=== PATIENT | male | born 1970 | race African-American/Black ===

== ENCOUNTER 2023-10-06 12:47 | Day surgery (SDC) | payer BC ==
[~2023-10-06 12:47] MED LIST: Lactated Ringers 1,000 ML IV SCH
[2023-10-06] MEDS ORDERED: Lidocaine 1% 5 ML VIAL ONE (13:17)
[2023-10-06] MEDS ORDERED: Lidocaine 2% 5 ML SDV ONE (14:44)
[2023-10-06] MEDS ORDERED: Propofol 200 MG/20 ML SDV ONE (14:44)
[2023-10-06] MEDS ORDERED: Lactated Ringers 1,000 ML IV SCH (15:30)
== END 2023-10-06 16:05 | disposition home or self-care (01) ==
LOC: MW.SDS 12:47
PROVIDERS: ATTEND Surgery
DX: Z12.11 Encounter for screening for malignant neoplasm of colon (principal); D12.4 Benign neoplasm of descending colon; I11.0 Hypertensive heart disease with heart failure; G47.33 Obstructive sleep apnea (adult) (pediatric); E66.9 Obesity, unspecified; Z68.31 Body mass index [BMI] 31.0-31.9, adult; Z79.899 Other long term (current) drug therapy
CPT/HCPCS: 45380; J2704; J7120; 00811; J3490